=== PATIENT | male | born 1950 | race Hispanic/Latino ===

== ENCOUNTER 2020-06-03 15:29 | Outpatient (CLI) | payer MEDICARE ==
--- NOTE | 2020-06-03 16:11 | RAD ---
TWO VIEW CHEST: 06/03/20 HISTORY: Cough. The lungs appear clear of infiltrate. Heart and mediastinum unremarkable. Vascular markings normal. M ild aortic calcification is noted. Osseous structures unremarkable with mild degenerative spine rivers e. IMPRESSION: No acute process. POS: [facility]
== END 2020-06-03 15:30 | disposition home or self-care (01) ==
LOC: BICRAD 15:29
PROVIDERS: ATTEND Family Medicine
DX: E11.9 Type 2 diabetes mellitus without complications (principal); R05 Cough
CPT/HCPCS: 71046